=== PATIENT | female | born 2000 | race African-American/Black ===

== ENCOUNTER 2024-08-13 06:19 | Emergency (ER) | payer BC, OTHER ==
[2024-08-13 06:26] VITALS: RESP 18; BMI 34.3
[2024-08-13] MEDS ORDERED: ONDANSETRON 4 MG/2 ML VIAL ONE (07:39)
[2024-08-13] MEDS ORDERED: ACETAMINOPHEN INJECTION 100 ML ONE (07:39)
[2024-08-13] MEDS ORDERED: MAG HYDROX/AL HYDROX/SIMETH 30 ML UNIT-DOSE CUP ONE (07:39)
[2024-08-13] MEDS ORDERED: FAMOTIDINE 20 MG/50 ML IVPB 20 MG/50 ML MG IVPB ONE (07:39)
[2024-08-13] MEDS: MAG HYDROX/AL HYDROX/SIMETH 30 ML UNIT-DOSE CUP PO ONE (08:12)
[2024-08-13] MEDS: SODIUM CHLORIDE 1,000 ML IV STA (08:13)
[2024-08-13] MEDS: ACETAMINOPHEN 1000 MG/100 ML BAG IVPB ONE (08:13)
[2024-08-13] MEDS: ONDANSETRON 4 MG/2 ML VIAL IVPUSH ONE (08:13)
[2024-08-13] MEDS: FAMOTIDINE 20 MG/50 ML IVPB 20 MG/50 ML MG IVPB ONE (08:13)
[2024-08-13 08:46] LABS: INR 1.1 (0.83-1.09); PROTHROMBIN TIME (PATIENT) 12.1 SEC (9.7-13.0)
[2024-08-13 08:50] LABS: ABSOLUTE IMMATURE GRANULOCYTES 0.02 x10^3/uL (0.0-0.031); BASOPHILS # 0.04 x10^3/uL (0.01-0.08); EOSINOPHIL % 0.5 % (0.7-5.8); EOSINOPHILS # 0.05 x10^3/uL (0.04-0.36); HEMATOCRIT 42.5 % (34.1-44.9); HEMOGLOBIN 14.3 g/dL (11.2-15.7); MCHC 33.6 g/dl (32.2-35.5); MEAN CELL VOLUME 84.8 fl (79.4-94.8); MEAN PLT VOLUME 9.2 fl (9.4-12.3); MONOCYTE # 0.69 x10^3/uL (0.24-0.86); MONOCYTE % 6.8 % (4.7-12.5); PLATELET COUNT 385 x10^3/uL (182-369); RDW 12.8 % (12.1-16.5)
[2024-08-13 09:07] LABS: POTASSIUM 3.8 mmol/L (3.5-5.1)
[2024-08-13 09:09] LABS: CALCIUM 9.3 mg/dL (8.5-10.1)
[2024-08-13 09:10] LABS: ALBUMIN 3.8 g/dl (3.4-5.0); BLOOD UREA NITROGEN 10.1 mg/dL (7-18)
[2024-08-13 09:13] LABS: CREATININE 0.6 mg/dL (0.55-1.3)
[2024-08-13 09:15] LABS: BILIRUBIN,TOTAL 0.4 mg/dL (0.2-1); TOT PROT 7.1 g/dl (6.4-8.2)
[2024-08-13 09:39] LABS: EPI CELLS 12 /uL (0-25.1); HYALINE CASTS 0 /uL (0-3.1); PH,URINE 6.5 (5.0-8.0); URINE BACTERIA 12 /uL (0-1359); URINE BILIRUBIN NEGATIVE (NEGATIVE); URINE COLOR YELLOW; URINE GLUCOSE (UA) NEGATIVE (NEGATIVE); URINE KETONE 1+ (NEGATIVE); URINE LEUK ESTERASE NEGATIVE (NEGATIVE); URINE NITRITE NEGATIVE (NEGATIVE); URINE PROTEIN NEGATIVE (NEGATIVE); URINE RBC 1144 /uL (0-23.9); URINE UROBILINOGEN 0.2 mg/dL (0.2-1.0); URINE WBC 14 /uL (0-25.8)
[2024-08-13 10:47] VITALS: BP 117/72; PULSE 67; TEMP 99.2
[2024-08-13 13:32] LABS: URINE APPEARANCE CLEAR
== END 2024-08-13 11:07 | disposition home or self-care (01) ==
LOC: JER 06:19
PROC: 3E033GC Introduction of Other Therapeutic Substance into Peripheral Vein, Percutaneous Approach (ICD-10-PCS; principal; 2024-08-13)
PROC: 3E033GC Introduction of Other Therapeutic Substance into Peripheral Vein, Percutaneous Approach (ICD-10-PCS; 2024-08-13)
PROC: 3E033NZ Introduction of Analgesics, Hypnotics, Sedatives into Peripheral Vein, Percutaneous Approach (ICD-10-PCS; 2024-08-13)
DX: N93.9 Abnormal uterine and vaginal bleeding, unspecified (principal); R10.30 Lower abdominal pain, unspecified; M25.512 Pain in left shoulder; R07.9 Chest pain, unspecified; M54.9 Dorsalgia, unspecified; R42 Dizziness and giddiness; R55 Syncope and collapse; R11.0 Nausea
CPT/HCPCS: 36415; 76817-TC; 80053; 81003; 82550; 84702; 84703; 85025; 85610; 86850; 86900; 86901; 87086; 93005; 93010; 99285-25; J0131